=== PATIENT | male | born 1940 | race Caucasian/White ===

== ENCOUNTER 2025-03-02 07:39 | Outpatient (CLI) | payer MEDICARE, OTHER | END 2025-03-02 07:40 | disposition home or self-care (01) | LOC: BICULT 07:39 | PROVIDERS: ATTEND Family Medicine | DX: M54.89 Other dorsalgia (principal); G89.29 Other chronic pain; R79.89 Other specified abnormal findings of blood chemistry | CPT/HCPCS: 76700 ==